=== PATIENT | female | born 1960 | race Caucasian/White ===

== ENCOUNTER 2018-03-07 11:18 | Emergency (ER) | payer OTHER ==
--- NOTE | 2018-03-07 11:38 | ER Document Report ---
ED Medical Screen (RME) - General Chief Complaint: Numbness of Face Stated Complaint: FACIAL NUMBNESS Time Seen by Provider: 03/07/18 11:34 Mode of Arrival: Ambulatory Information source: Patient Notes: 57-year-old female history of hypertension presents with complaints of left facial numbness, she feels that her face is swelled, she noted some itching yesterday took some Benadryl notes the itching improved but the numbness is continued. She has no other neurological deficits or complaints I have greeted and performed a rapid initial assessment of this patient. A comprehensive ED assessment and evaluation of the patient, analysis of test results and completion of the medical decision making process will be conducted by additional ED providers. PHYSICAL EXAMINATION: GENERAL: Well-appearing, well-nourished and in no acute distress. HEAD: Atraumatic, normocephalic. EYES: Pupils equal round extraocular movements intact, conjunctiva are normal. ENT: Nares patent NECK: Normal range of motion LUNGS: No respiratory distress Musculoskeletal: Normal range of motion NEUROLOGICAL: Subjective paresthesias of the left face PSYCH: Normal mood, normal affect. SKIN: Warm, Dry, normal turgor, no rashes or lesions noted. - Related Data Allergies/Adverse Reactions: erythromycin base [Erythromycin Base] Allergy (Severe, Verified 12/10/11 10:06) n and v Penicillins Allergy (Severe, Verified 12/10/11 10:06) face tightness novacaine Allergy (Severe, Uncoded 12/10/11 10:06) redness Past Medical History - Social History Chew tobacco use (# tins/day): No Frequency of alcohol use: None Drug Abuse: None - Past Medical History Cardiac Medical History: Denies: Hx Coronary Artery Disease, Hx Heart Attack, Hx Hypertension Pulmonary Medical History: Denies: Hx Asthma, Hx Bronchitis, Hx COPD, Hx Pneumonia Neurological Medical History: Denies: Hx Cerebrovascular Accident, Hx Seizures Renal/ Medical History: Denies: Hx Peritoneal Dialysis Musculoskeltal Medical History: Denies Hx Arthritis Past Surgical History: Denies: Hx Pacemaker - Immunizations Hx Diphtheria, Pertussis, Tetanus Vaccination: No Physical Exam - Vital signs Vitals: Temp Pulse Resp BP Pulse Ox 98.2 F 79 18 138/84 H 93 03/07/18 11:22 03/07/18 11:22 03/07/18 11:22 03/07/18 11:22 03/07/18 11:22 Course - Vital Signs Vital signs: Temp Pulse Resp BP Pulse Ox 98.2 F 79 18 138/84 H 93 03/07/18 11:22 03/07/18 11:22 03/07/18 11:22 03/07/18 11:22 03/07/18 11:22 Doctor's Discharge - Discharge Referrals: JERRY THOMAS MD [Primary Care Provider] - Follow up as needed
--- NOTE | 2018-03-07 11:56 | RADIOLOGY REPORT (SQ) ---
EXAM DESCRIPTION: CT HEAD WITHOUT COMPLETED DATE/TIME: 03/07/2018 11:49 am REASON FOR STUDY: left facial numbness COMPARISON: None. TECHNIQUE: Axial images acquired through the brain without intravenous contrast. Images reviewed wi th bone, brain and subdural windows. Images stored on PACS. All CT scanners at this facility use dose modulation, iterative reconstruction, and/or weight based d osing when appropriate to reduce radiation dose to as low as reasonably achievable (ALARA). [facility]: Dose Right [facility]: CareDose [facility]: Dose Right [facility]: Teradose 4D [facility]: Smart scrible RADIATION DOSE: CT Rad equipment meets quality standard of care and radiation dose reduction techniq ues were employed. CTDIvol: 53.2 mGy. DLP: 1017 mGy-cm. mGy. LIMITATIONS: None. FINDINGS: VENTRICLES: Normal size and contour. CEREBRUM: No masses. No hemorrhage. No midline shift. No evidence for acute infarction. Normal gra y/white matter differentiation. No areas of low density in the white matter. CEREBELLUM: No masses. No hemorrhage. No alteration of density. No evidence for acute infarction. EXTRAAXIAL SPACES: No fluid collections. No masses. ORBITS AND GLOBE: No intra- or extraconal masses. Normal contour of globe without masses. CALVARIUM: No fracture. PARANASAL SINUSES: No fluid or mucosal thickening. SOFT TISSUES: No mass or hematoma. OTHER: No other significant finding. IMPRESSION: NORMAL BRAIN CT WITHOUT CONTRAST. EVIDENCE OF ACUTE STROKE: NO. COMMENT: Quality ID # [id number]: Final reports with documentation of one or more dose reduction techniques (e.g., Automated exposure control, adjustment of the mA and/or kV according to patient size, use of iterative reconstruction technique) TECHNICAL DOCUMENTATION: JOB ID: [id number] [employer] All Rights Reserved Reading location - IP/workstation name: [email or web address]
--- NOTE | 2018-03-07 12:00 | ER Document Report ---
ED Neuro Symptoms/Deficit <DEBBIE CONNELL - Last Filed: 03/07/18 14:46> - General Mode of Arrival: Ambulatory Information source: Patient <EMILIE POTTER - Last Filed: 03/07/18 15:15> - General Chief Complaint: Numbness of Face Stated Complaint: FACIAL NUMBNESS Time Seen by Provider: 03/07/18 11:34 Notes: Patient is a 57 year old female that presents to the emergency department today with complaints of left sided facial tingling. Patient states both sides of her face have been "itchy" lately as well. Patient states this "itching" feeling has been going on in both arms and her face for quite some time but the numbness is new. Patient denies any focal weaknesses. (ABBEYEMILIE) - Related Data Allergies/Adverse Reactions: erythromycin base [Erythromycin Base] Allergy (Severe, Verified 12/10/11 10:06) n and v Penicillins Allergy (Severe, Verified 12/10/11 10:06) face tightness novacaine Allergy (Severe, Uncoded 12/10/11 10:06) redness Past Medical History - General Information source: Patient - Social History Smoking Status: Never Smoker Cigarette use (# per day): No Chew tobacco use (# tins/day): No Frequency of alcohol use: None Drug Abuse: None Lives with: Family Family History: Reviewed & Not Pertinent Patient has suicidal ideation: No Patient has homicidal ideation: No - Medical History Medical History: Negative Past Surgical History: Reports: Hx Cholecystectomy, Hx Hysterectomy, Other - lymph node removal - Immunizations Hx Diphtheria, Pertussis, Tetanus Vaccination: No <EMILIE POTTER - Last Filed: 03/07/18 15:15> Review of Systems - Review of Systems Constitutional: No symptoms reported EENT: See HPI, Other - facial tingling/itching Cardiovascular: No symptoms reported Respiratory: No symptoms reported Gastrointestinal: No symptoms reported Genitourinary: No symptoms reported Female Genitourinary: No symptoms reported Musculoskeletal: No symptoms reported Skin: No symptoms reported Hematologic/Lymphatic: No symptoms reported Neurological/Psychological: denies: Weakness -: Yes All other systems reviewed and negative <EMILIE POTTER - Last Filed: 03/07/18 15:15> Physical Exam - Vital signs Interpretation: Normal - General General appearance: Appears well, Alert - HEENT Head: Normocephalic, Atraumatic Eyes: Normal Pupils: PERRL Ears: Normal External canal: Normal Tympanic membrane: Normal Neck: No: Carotid bruit - Respiratory Respiratory status: No respiratory distress Chest status: Nontender Breath sounds: Normal Chest palpation: Normal - Cardiovascular Rhythm: Regular Heart sounds: Normal auscultation Murmur: No - Abdominal Inspection: Normal Distension: No distension Bowel sounds: Normal Tenderness: Nontender Organomegaly: No organomegaly - Back Back: Normal, Nontender - Extremities General upper extremity: Normal inspection, Nontender, Normal color, Normal ROM , Normal temperature General lower extremity: Normal inspection, Nontender, Normal color, Normal ROM , Normal temperature, Normal weight bearing. No: Jennifer's sign - Neurological Neuro grossly intact: Yes Cognition: Normal Orientation: AAOx4 Yosvany Coma Scale Eye Opening: Spontaneous [place] Coma Scale Verbal: Oriented Yosvany Coma Scale Motor: Obeys Commands Yosvany Coma Scale Total: 15 Speech: Normal Cranial nerves: Normal Cerebellar coordination: Normal Motor strength normal: LUE, RUE, LLE, RLE Sensory: Normal - Psychological Associated symptoms: Normal affect, Normal mood - Skin Skin Temperature: Warm Skin Moisture: Dry Skin Color: Normal <EMILIE POTTER - Last Filed: 03/07/18 15:15> - Vital signs Vitals: Temp Pulse Resp BP Pulse Ox 98.2 F 79 18 138/84 H 93 03/07/18 11:22 03/07/18 11:22 03/07/18 11:22 03/07/18 11:22 03/07/18 11:22 Course - Laboratory Result Diagrams: 03/07/18 12:37 03/07/18 12:37 - Diagnostic Test Radiology reviewed: Image reviewed, Reports reviewed - CT of the head is read as unremarkable, chest x-ray is unremarkable. MRI of the brain is unremarkable with no evidence of stroke. - EKG Interpretation by [place] EKG shows normal: Sinus rhythm, [place], Intervals, QRS Complexes, ST-T Waves Rate: Normal - 67 Rhythm: NSR [place]/QRS: IVCD Voltage: Consistant with LVH When compared to previous EKG there are: No significant change - No change compared to 12/10/2011 <DEBBIE CONNELL - Last Filed: 03/07/18 14:46> - Laboratory Result Diagrams: 03/07/18 12:37 03/07/18 12:37 <EMILIE POTTER - Last Filed: 03/07/18 15:15> - Vital Signs Vital signs: Temp Pulse Resp BP Pulse Ox 98.2 F 77 18 138/79 H 92 03/07/18 11:22 03/07/18 12:38 03/07/18 13:00 03/07/18 12:38 03/07/18 13:00 - Laboratory Laboratory results interpreted by me: 03/07/18 12:37 Chloride 108 H Creatinine 0.51 L Discharge <KODEBBIE - Last Filed: 03/07/18 14:46> <EMILIE POTTER - Last Filed: 03/07/18 15:15> - Discharge Clinical Impression: Left facial numbness Additional Instructions: Numbness or Paresthesia: Definition: Numbness and tingling are decreased or abnormal sensations caused by altered sensory nerve function. Description: The feeling of having a foot "fall asleep" is a familiar one. This same combination of numbness and tingling can occur in any region of the body and may be caused by a wide variety of disorders. Sensations such as these , which occur without any associated stimulus, are called paresthesias. Other types of paresthesias include feelings of cold, warmth, burning, itching, and skin crawl. Often no explanation for the numbness and tingling can be found. Your CT scan of the brain and MRI of the brain were both normal. No clear explanation for your numbness sensation has been found today. You should follow-up with your primary care provider this week if not improving. RETURN TO THE EMERGENCY ROOM IF ANY NEW OR WORSENING SYMPTOMS. Referrals: JERRY THOMAS MD [ACTIVE STAFF] - Follow up as needed Scribe Attestation: 03/07/18 12:13 I personally performed the services described in the documentation, reviewed and edited the documentation which was dictated to the scribe in my presence, and it accurately records my words and actions. (DEBBIE CONNELL) Scribe Documentation - Scribe Written by Toro:: Toro Cantrell, 03/07/2018 1510 acting as scribe for :: Ko <EMILIE POTTER - Last Filed: 03/07/18 15:15>
--- NOTE | 2018-03-07 12:02 | RADIOLOGY REPORT (SQ) ---
EXAM DESCRIPTION: CHEST SINGLE VIEW COMPLETED DATE/TIME: 03/07/2018 11:55 am REASON FOR STUDY: left facial numbness COMPARISON: 03/18/2010 EXAM PARAMETERS: NUMBER OF VIEWS: One view. TECHNIQUE: Single frontal radiographic view of the chest acquired. RADIATION DOSE: NA LIMITATIONS: None. FINDINGS: LUNGS AND PLEURA: No opacities, masses or pneumothorax. No pleural effusion. MEDIASTINUM AND HILAR STRUCTURES: No masses. Contour normal. HEART AND VASCULAR STRUCTURES: Heart normal in size. Normal vasculature. BONES: No acute findings. HARDWARE: None in the chest. OTHER: No other significant finding. IMPRESSION: NO ACUTE RADIOGRAPHIC FINDING IN THE CHEST. TECHNICAL DOCUMENTATION: JOB ID: [id number] [employer]- All Rights Reserved Reading location - IP/workstation name: [email or web address]
[2018-03-07 12:46] LABS: ABSOLUTE BASOPHILS # (AUTO) 0.1 10^3/uL (0.0-0.2); ABSOLUTE EOSINOPHILS # (AUTO) 0.2 10^3/uL (0.0-0.6); ABSOLUTE LYMPHOCYTES (AUTO) 1.9 10^3/uL (0.5-4.7); ABSOLUTE MONOCYTES (AUTO) 0.4 10^3/uL (0.1-1.4); BASOPHILS % (AUTO) 0.8 % (0-2); HEMATOCRIT 40.4 % (36.0-47.0); HEMOGLOBIN 13.7 g/dL (12.0-15.5); LYMPHOCYTES % (AUTO) 25.1 % (13-45); MEAN CORPUSCULAR HEMOGLOBIN 29.3 pg (27.0-33.4); MEAN CORPUSCULAR HGB CONC 33.8 g/dL (32.0-36.0); MEAN CORPUSCULAR VOLUME 87 fl (80-97); MONOCYTES % (AUTO) 5.6 % (3-13); PLATELET COUNT 260 10^3/uL (150-450); RED BLOOD COUNT 4.67 10^6/uL (3.72-5.28); RED CELL DISTRIBUTION WIDTH 13.5 % (11.5-14.0); SEGMENTED NEUTROPHILS % (AUTO) 66.5 % (42-78); TOTAL CELLS COUNTED % (AUTO) 100 %; WHITE BLOOD COUNT 7.5 10^3/uL (4.0-10.5)
[2018-03-07 12:53] LABS: INTERNATIONAL RATION (INR) 0.88; PARTIAL THROMBOPLASTIN TIME 26.4 SEC (23.5-35.8); PROTHROMBIN TIME 12.4 SEC (11.4-15.4)
[2018-03-07 13:06] LABS: ALANINE AMINOTRANSFERASE 47 U/L (9-52); ALBUMIN 4.2 g/dL (3.5-5.0); ALKALINE PHOSPHATASE 110 U/L (38-126); ANION GAP 14 (5-19); ASPARTATE AMINO TRANSFERASE 31 U/L (14-36); BILIRUBIN,DIRECT 0.2 mg/dL (0.0-0.4); BILIRUBIN,TOTAL 1.1 mg/dL (0.2-1.3); BLOOD UREA NITROGEN 14 mg/dL (7-20); CALCIUM 9.9 mg/dL (8.4-10.2); CARBON DIOXIDE 22 mmol/L (22-30); CHLORIDE 108 mmol/L (98-107); CREATINE KINASE 50 U/L (30-135); GLUCOSE 101 mg/dL (75-110); SODIUM 143.7 mmol/L (137-145); TOTAL PROTEIN 7.2 g/dL (6.3-8.2)
[2018-03-07 13:17] LABS: CREATINE KINASE MB 0.54 ng/mL (<4.55)
[2018-03-07 13:26] LABS: TROPONIN I < 0.012 ng/mL
--- NOTE | 2018-03-07 14:03 | RADIOLOGY REPORT (SQ) ---
EXAM DESCRIPTION: MRI HEAD WITHOUT COMPLETED DATE/TIME: 03/07/2018 1:54 pm REASON FOR STUDY: Left face numbness COMPARISON: None. TECHNIQUE: Multiplanar imaging includes non-contrasted T1, T2, FLAIR, and diffusion with ADC map seq uences. Images stored on PACS. LIMITATIONS: None. FINDINGS: ANATOMY: No anomalies. Normal vascular flow voids. Pituitary fossa normal. CSF SPACES: Normal in size and contour. No hemorrhage. CEREBRUM: Sulci and gyri normal in size and contour. Normal white matter signal on FLAIR imaging. No evidence of hemorrhage, mass, or extraaxial fluid collection. POSTERIOR FOSSA: No signal alteration. No hemorrhage. No edema, masses or mass effect. Internal eagle tory canals, cerebello-pontine angles, mastoids normal. DIFFUSION IMAGING: Negative for acute or sub-acute infarction. ORBITS: No masses. Globes normal. PARANASAL SINUSES: No fluid levels. Mucosa normal. OTHER: No other significant finding. IMPRESSION: NORMAL MRI OF THE BRAIN WITHOUT INTRAVENOUS GADOLINIUM CONTRAST. EVIDENCE OF ACUTE STROKE: NO. TECHNICAL DOCUMENTATION: JOB ID: [id number]- All Rights Reserved Reading location - IP/workstation name: [email or web address]
[2018-03-07 15:19] VITALS: BP 127/80
--- NOTE | 2018-03-07 23:18 | EKG REPORT ---
SEVERITY:- ABNORMAL ECG - SINUS RHYTHM NONSPECIFIC INTRAVENTRICULAR CONDUCTION DELAY PROBABLE LEFT VENTRICULAR HYPERTROPHY CONSIDER ANTERIOR INFARCT : Confirmed by: Rowena Meneses 07-Mar-2018 23:18:04
== END 2018-03-07 15:25 | disposition home or self-care (01) ==
LOC: ER 11:18
DX: R20.0 Anesthesia of skin (principal); Z88.3 Allergy status to other anti-infective agents; Z88.0 Allergy status to penicillin; Z90.49 Acquired absence of other specified parts of digestive tract; Z90.710 Acquired absence of both cervix and uterus
CPT/HCPCS: 36415; 70450; 70551; 71045; 80053; 82550; 82553; 84484; 85025; 85610; 85730; 93005; 93010; 99285

== ENCOUNTER 2020-09-14 13:11 | Inpatient (IN) | payer OTHER ==
[2020-09-14] MEDS ORDERED: ONDANSETRON HCL INJ/PF 4 MG/2 ML SDV IV ONE (13:26)
[2020-09-14] MEDS ORDERED: NORMAL SALINE 1000 ML 1,000 ML IV ONE (13:26)
--- NOTE | 2020-09-14 13:26 | ER Document Report ---
ED Medical Screen (RME) - General Stated Complaint: VOMITING/DIARRHEA Time Seen by Provider: 09/14/20 13:22 Primary Care Provider: JERRY THOMAS MD [Primary Care Provider] - Follow up as needed Mode of Arrival: Ambulatory Information source: Patient Notes: Patient presents complaining of nausea vomiting diarrhea for the past 6 days. Patient reports mild cough. Patient reports that she was recently notified that she did test positive for Covid. Patient denies any abdominal tenderness. Patient is concerned about dehydration. Patient does have an underlying history of hypertension. I have greeted and performed a rapid initial assessment of this patient. A comprehensive ED assessment and evaluation of the patient, analysis of test results and completion of the medical decision making process will be conducted by additional ED providers. - Related Data Allergies/Adverse Reactions: erythromycin base [Erythromycin Base] Allergy (Severe, Verified 12/10/11 10:06) n and v Penicillins Allergy (Severe, Verified 12/10/11 10:06) face tightness novacaine Allergy (Severe, Uncoded 12/10/11 10:06) redness Past Medical History - Past Medical History Cardiac Medical History: Denies: Hx Coronary Artery Disease, Hx Heart Attack, Hx Hypertension Pulmonary Medical History: Denies: Hx Asthma, Hx Bronchitis, Hx COPD, Hx Pneumonia Neurological Medical History: Denies: Hx Cerebrovascular Accident, Hx Seizures Renal/ Medical History: Denies: Hx Peritoneal Dialysis Musculoskeltal Medical History: Denies Hx Arthritis Past Surgical History: Reports: Hx Cholecystectomy, Hx Hysterectomy, Other - lymph node removal. Denies: Hx Pacemaker - Immunizations Hx Diphtheria, Pertussis, Tetanus Vaccination: No Physical Exam - Vital signs Vitals: Temp Pulse Resp BP Pulse Ox 98.4 F 101 H 22 H 130/67 H 92 09/14/20 13:22 09/14/20 13:22 09/14/20 13:22 09/14/20 13:22 09/14/20 13:22 - General General appearance: Alert - Cardiovascular Rhythm: Tachycardia Heart sounds: S1 appreciated, S2 appreciated - Abdominal Inspection: Normal Distension: No distension Tenderness: Nontender Course - Vital Signs Vital signs: Temp Pulse Resp BP Pulse Ox 98.4 F 101 H 22 H 130/67 H 92 09/14/20 13:22 09/14/20 13:22 09/14/20 13:22 09/14/20 13:22 09/14/20 13:22 Doctor's Discharge - Discharge Referrals: JERRY THOMAS MD [Primary Care Provider] - Follow up as needed
--- NOTE | 2020-09-14 15:09 | RADIOLOGY REPORT (SQ) ---
EXAM DESCRIPTION: CHEST SINGLE VIEW IMAGES COMPLETED DATE/TIME: 09/14/2020 2:59 pm REASON FOR STUDY: cough COMPARISON: AP view of the chest from 03/07/2018. EXAM PARAMETERS: NUMBER OF VIEWS: One view. TECHNIQUE: An AP view of the chest was obtained. RADIATION DOSE: NA LIMITATIONS: None. FINDINGS: LUNGS AND PLEURA: Strands of subsegmental atelectasis in the inferolateral aspect of the l eft lung. There is no acute consolidation, pleural effusion or pneumothorax. MEDIASTINUM AND HILAR STRUCTURES: No mediastinal or hilar contour abnormality. HEART AND VASCULAR STRUCTURES: The cardiac silhouette and pulmonary vasculature are within normal medrano its. BONES: No acute findings. HARDWARE: None in the chest. OTHER: No other finding. IMPRESSION: No acute cardiopulmonary process. TECHNICAL DOCUMENTATION: JOB ID: [id number] [employer]- All Rights Reserved Reading location - IP/workstation name: [email or web address]
[2020-09-14] MEDS ORDERED: ONDANSETRON HCL INJ/PF 4 MG/2 ML SDV ONE ×2 (15:34→15:36)
[2020-09-14 16:03] LABS: ABSOLUTE LYMPHOCYTES (AUTO) 0.9 10^3/uL (0.5-4.7); ABSOLUTE MONOCYTES (AUTO) 0.7 10^3/uL (0.1-1.4); ABSOLUTE NEUT (AUTO) 5.7 10^3/uL (1.7-8.2); BASOPHILS % (AUTO) 0.3 % (0-2); EOSINOPHILS % (AUTO) 0.1 % (0-6); HEMATOCRIT 44.9 % (36.0-47.0); LYMPHOCYTES % (AUTO) 12.5 % (13-45); MEAN CORPUSCULAR HEMOGLOBIN 29.2 pg (27.0-33.4); MEAN CORPUSCULAR HGB CONC 33.4 g/dL (32.0-36.0); MEAN CORPUSCULAR VOLUME 87 fl (80-97); MONOCYTES % (AUTO) 9.4 % (3-13); PLATELET COUNT 233 10^3/uL (150-450); RED BLOOD COUNT 5.14 10^6/uL (3.72-5.28); RED CELL DISTRIBUTION WIDTH 13.5 % (11.5-14.0); SEGMENTED NEUTROPHILS % (AUTO) 77.7 % (42-78); TOTAL CELLS COUNTED % (AUTO) 100 %; WHITE BLOOD COUNT 7.3 10^3/uL (4.0-10.5)
[2020-09-14 16:13] LABS: ALBUMIN 4.3 g/dL (3.5-5.0); ALKALINE PHOSPHATASE 142 U/L (38-126); ANION GAP 13 (5-19); ASPARTATE AMINO TRANSFERASE 81 U/L (14-36); BILIRUBIN,DIRECT 0.2 mg/dL (0.0-0.4); BILIRUBIN,TOTAL 1.6 mg/dL (0.2-1.3); BLOOD UREA NITROGEN 22 mg/dL (7-20); CALCIUM 9.6 mg/dL (8.4-10.2); CARBON DIOXIDE 26 mmol/L (22-30); CHLORIDE 103 mmol/L (98-107); GLUCOSE 124 mg/dL (75-110); POTASSIUM 3.5 mmol/L (3.6-5.0); TOTAL PROTEIN 7.6 g/dL (6.3-8.2)
[2020-09-14] MEDS ORDERED: PROMETHAZINE HCL INJ 50 MG/1 ML VIAL IM ONE (20:10)
--- NOTE | 2020-09-14 20:15 | ER Document Report ---
ED General - General Chief Complaint: Nausea/Vomiting/Diarrhea Stated Complaint: VOMITING/DIARRHEA Time Seen by Provider: 09/14/20 13:22 Mode of Arrival: Ambulatory - [facility] Notes: Patient is a 59-year-old female with a past medical history of high blood pressure who presents with vomiting and shortness of breath. Patient states she tested positive for Covid last week. She developed symptoms around the 08 of September. She had vomiting and diarrhea. The diarrhea has mostly resolved. Today, she has had a lot of vomiting. She is unable to keep food down. She denies any abdominal pain. No loss of taste or smell. States she has had fevers with T-max of 101. Denies any chest pain. Patient was noted to be 90% on room air and was placed on 2 L nasal cannula while in the ER. - Related Data Allergies/Adverse Reactions: erythromycin base [Erythromycin Base] Allergy (Severe, Verified 09/14/20 15:44) n and v Penicillins Allergy (Severe, Verified 09/14/20 15:44) face tightness novacaine Allergy (Severe, Uncoded 12/10/11 10:06) redness Past Medical History - General Information source: Patient - Social History Smoking Status: Former Smoker Frequency of alcohol use: None Drug Abuse: None Family History: Reviewed & Not Pertinent Patient has homicidal ideation: No - Past Medical History Cardiac Medical History: Denies: Hx Coronary Artery Disease, Hx Heart Attack, Hx Hypertension Pulmonary Medical History: Denies: Hx Asthma, Hx Bronchitis, Hx COPD, Hx Pneumonia Neurological Medical History: Denies: Hx Cerebrovascular Accident, Hx Seizures Renal/ Medical History: Denies: Hx Peritoneal Dialysis Musculoskeletal Medical History: Denies Hx Arthritis Past Surgical History: Reports: Hx Cholecystectomy, Hx Hysterectomy, Other - lymph node removal. Denies: Hx Pacemaker - Immunizations Hx Diphtheria, Pertussis, Tetanus Vaccination: No Review of Systems - Review of Systems Notes: CONSTITUTIONAL:Positive for fever and fatigue. SKIN: No rash. HENT: No congestion, ear pain, or sore throat. . CARDIOVASCULAR: No chest pain or edema. RESPIRATORY: No cough, shortness of breath, congestion, or wheezing. GASTROINTESTINAL: No abdominal pain. Positive for nausea, vomiting, diarrhea. MUSCULOSKELETAL: No joint pain or swelling. NEUROLOGIC: No seizures. No headache, focal weakness or sensory changes. HEMATOLOGIC: No unusual bruising or bleeding. PSYCHIATRIC: No depression or anxiety. Physical Exam - Vital signs Vitals: Temp Pulse Resp BP Pulse Ox 98.4 F 101 H 22 H 130/67 H 92 09/14/20 13:22 09/14/20 13:22 09/14/20 13:22 09/14/20 13:22 09/14/20 13:22 - General In distress: Mild Notes: VITAL SIGNS: Mild hypoxia on room air. GENERAL: Mild distress. HEAD: Normal with no signs of head trauma. EYES: Conjunctiva normal, no discharge. EARS: Hearing grossly intact. NOSE: Normal. NECK: Normal range of motion, no tenderness, supple, no lymphadenopathy, No adenopathy, no JVD. CHEST: Clear breath sounds bilaterally. No wheezes, rales, or rhonchi. CARDIAC: Regular rate and rhythm. S1 and S2, without murmurs, gallops, or rubs. ABDOMEN: Normal and soft with no tenderness, no masses MUSCULOSKELETAL: Good range of motion of all major joints. Extremities without clubbing, cyanosis or edema. NEUROLOGICAL: Alert and oriented x 3. No focal sensory or strength deficits. Speech normal. Follows commands appropriately. PSYCHIATRIC: Normal Affect, judgement and mood. SKIN: Normal appearance with no rashes or lesions. Course - Re-evaluation Re-evalutation: 09/14/20 20:15 Patient aappears very uncomfortable. She is actively vomiting. She has had multiple doses of nausea medicine. She states she is unable to keep anything down. Patient was also noted to be hypoxic on room air. Lab work was reviewed. Likely, patient will be admitted as she is covid positive, has mild hypoxia, and is unable to keep PO. I will discuss with the hospitalist. Hospitalist recommend that I order a D-dimer. 09/15/20 02:04 - Vital Signs Vital signs: Temp Pulse Resp BP Pulse Ox 98.7 F 83 19 138/76 H 95 09/15/20 00:52 09/15/20 01:58 09/15/20 00:52 09/15/20 00:52 09/15/20 00:52 - Laboratory Results Result Diagrams: 09/14/20 15:30 09/14/20 15:30 Laboratory Results Interpreted: 09/14/20 09/14/20 09/14/20 15:30 15:30 15:30 Lymph % (Auto) 12.5 L D-Dimer 0.57 H Potassium 3.5 L BUN 22 H Glucose 124 H Total Bilirubin 1.6 H AST 81 H ALT 60 H Alkaline Phosphatase 142 H Critical Laboratory Results Reviewed: No Critical Results - Radiology Results Critical Radiology Results Reviewed: No Critical Results - EKG Interpretation by Me EKG shows normal: Sinus rhythm Rate: Normal Rhythm: NSR When compared to previous EKG there are: Previous EKG unavailable Additional EKG results interpreted by me: 09/14/20 22:51 NS rhythm at a rate of 67. QTc 456. No acute ST changes. No previous EKG available for comparison. Discharge - Discharge Clinical Impression: COVID-19, Acute respiratory failure with hypoxia, Dehydration Vomiting Qualifiers: Vomiting type: unspecified Vomiting Intractability: non-intractable Nausea presence: with nausea Qualified Code(s): R11.2 - Nausea with vomiting, unspecified Condition: Stable Disposition: ADMITTED INPATIENT Admitting Provider: [facility] Admitted: Telemetry
[2020-09-14] MEDS ORDERED: PROMETHAZINE HCL INJ 25 MG/1 ML VIAL IM ONE (20:26)
[2020-09-14] MEDS ORDERED: ONDANSETRON HCL INJ/PF 4 MG/2 ML SDV IV PRN (22:45)
--- NOTE | 2020-09-14 23:08 | PDOC H&P ---
History of Present Illness Admission Date/PCP: JERRY THOMAS MD Patient complains of: Weak, vomiting and diarrhea History of Present Illness: GERMANIA DURHAM is a 59 year old female She is not feeling well for about 7 to 10 days now. She tested positive for coronavirus on September 11. She was coughing, she had shaking chills and fever. She had no shortness of breath. She developed diarrhea with watery bowel movements. She became nauseated, lost her appetite and vomited several times. She had no coffee-ground material or blood in her emesis. She continued to have some fever. She became weak and eventually decided come to the hospital. After receiving intravenous fluids she was started feeling better. She did not have any shortness of breath but her oxygen saturation was about 90% on room air, she was placed on oxygen. She maintains good oxygen saturation with 2 L/min nasal oxygen in the high 90s. When I saw her she appeared to be weak but she was not in any pain or respiratory distress. Past Medical History Cardiac Medical History: Reports: Hypertension Denies: Coronary Artery Disease, Myocardial Infarction Pulmonary Medical History: Denies: Asthma, Bronchitis, Chronic Obstructive Pulmonary Disease (COPD), Pneumonia Neurological Medical History: Denies: Seizures Endocrine Medical History: Denies: Diabetes Mellitus Type 1, Diabetes Mellitus Type 2 GI Medical History: Reports: None Musculoskeltal Medical History: Denies: Arthritis Psychiatric Medical History: Reports: None Hematology: Reports: None Denies: Anemia Infectious Medical History: Reports: None Past Surgical History Past Surgical History: Reports: Cholecystectomy, Hysterectomy, Other - lymph node removal Denies: Pacemaker Social History Lives with: Family Smoking Status: Former Smoker Family History Family History: CAD, Other - Lung cancer Parental Family History Reviewed: Yes Children Family History Reviewed: Yes Sibling(s) Family History Reviewed.: Yes Medication/Allergy Home Medications: Premarin PO DAILY 12/10/11 Allergies/Adverse Reactions: erythromycin base [Erythromycin Base] Allergy (Severe, Verified 09/14/20 15:44) n and v Penicillins Allergy (Severe, Verified 09/14/20 15:44) face tightness novacaine Allergy (Severe, Uncoded 12/10/11 10:06) redness Review of Systems Constitutional: PRESENT: anorexia, chills, fever(s), weakness Cardiovascular: ABSENT: chest pain, dyspnea on exertion, edema, orthropnea, palpitations Respiratory: PRESENT: cough - Had some minimal dry cough earlier, she is not coughing anymore.. ABSENT: dyspnea, hemoptysis, sputum Gastrointestinal: PRESENT: diarrhea, nausea, vomiting. ABSENT: abdominal pain, coffee ground emesis, heartburn, melena Genitourinary: ABSENT: dysuria, hematuria Musculoskeletal: ABSENT: joint swelling Integumentary: ABSENT: rash, wounds Neurological: ABSENT: abnormal gait, abnormal speech, confusion, dizziness, focal weakness, syncope Hematologic/Lymphatic: ABSENT: easy bleeding, easy bruising Physical Exam Vital Signs: Temp Pulse Resp BP Pulse Ox 98.2 F 85 20 135/62 H 97 09/14/20 21:00 09/14/20 21:00 09/14/20 17:00 09/14/20 21:00 09/14/20 21:00 Intake & Output 09/13/20 09/14/20 09/15/20 06:59 06:59 06:59 Intake Total 1000 Balance 1000 Weight 90.718 kg General appearance: PRESENT: no acute distress Head exam: PRESENT: atraumatic Eye exam: PRESENT: conjunctival injection Ear exam: PRESENT: normal external ear exam Mouth exam: PRESENT: moist, tongue midline Neck exam: ABSENT: carotid bruit, JVD, lymphadenopathy, thyromegaly Respiratory exam: PRESENT: clear to auscultation keara. ABSENT: rales, rhonchi, wheezes Cardiovascular exam: PRESENT: RRR. ABSENT: diastolic murmur, rubs, systolic murmur Pulses: PRESENT: normal dorsalis pedis pul GI/Abdominal exam: PRESENT: normal bowel sounds, soft. ABSENT: distended, guarding, mass, organolmegaly, rebound, tenderness Neurological exam: PRESENT: alert, awake, oriented to person, oriented to place, oriented to time, oriented to situation, CN II-XII grossly intact. ABSENT: motor sensory deficit Skin exam: PRESENT: dry, intact, warm. ABSENT: cyanosis, rash Results Laboratory Results: 09/14/20 15:30 09/14/20 15:30 09/14/20 09/14/20 15:30 15:30 WBC 7.3 RBC 5.14 Hgb 15.0 Hct 44.9 MCV 87 MCH 29.2 MCHC 33.4 RDW 13.5 Plt Count 233 Seg Neutrophils % 77.7 Sodium 142.1 Potassium 3.5 L Chloride 103 Carbon Dioxide 26 Anion Gap 13 BUN 22 H Creatinine 0.65 Est GFR ( Amer) > 60 Glucose 124 H Calcium 9.6 Total Bilirubin 1.6 H AST 81 H Alkaline Phosphatase 142 H Total Protein 7.6 Albumin 4.3 Lipase 33.7 09/14/20 15:30 Troponin I < 0.012 Impressions: Chest X-Ray 09/14/20 13:26 IMPRESSION: No acute cardiopulmonary process. Assessment and Plan - Diagnosis (1) Acute respiratory failure with hypoxia Is this a current diagnosis for this admission?: Yes Plan: She had no shortness of breath but her oxygen saturation was only 90% on room air. She maintains good oxygen saturation with 2 L/min nasal oxygen. Chest x- ray did not show any acute infiltrate. Lung examination unremarkable. D-dimer slightly elevated. Patient is going to have a CT pulmonary angiogram. In case she has pulmonary embolus, she will be anticoagulated. In case she does not have pulmonary embolus she may receive dexamethasone if she has infiltrates. Continue oxygen therapy. (2) COVID-19 Is this a current diagnosis for this admission?: Yes Plan: She was tested positive for coronavirus infection earlier this week. She was hypoxic but she really did not have any significant respiratory symptoms and she definitely did not have any shortness of breath. She had significant gastrointestinal symptoms with nausea vomiting and diarrhea. No abdominal pain. He is going to be on appropriate isolation. She is sick for about 10 days now, I believe convalescent plasma probably not going to be much helpful. (3) Vomiting Qualifiers: Vomiting type: unspecified Vomiting Intractability: non-intractable Nausea presence: with nausea Qualified Code(s): R11.2 - Nausea with vomiting, unspecified Is this a current diagnosis for this admission?: Yes Plan: She is feeling better and not nauseated now. Antiemetics as needed. Start full liquid diet in the morning, advance as tolerated. (4) Diarrhea Qualifiers: Diarrhea type: infectious Qualified Code(s): A09 - Infectious gastroenteritis and colitis, unspecified Is this a current diagnosis for this admission?: Yes Plan: Secondary to coronavirus infection. It is improving. Bacterial infection seems to be unlikely. (5) Dehydration Is this a current diagnosis for this admission?: Yes Plan: She received fluid bolus in the emergency department, it made her feel better. Continue gentle hydration but avoid any volume overload. If she is eating, drinking well, tomorrow intravenous fluid can be discontinued. (7) Hypertension Qualifiers: Hypertension type: essential hypertension Qualified Code(s): I10 - Essential (primary) hypertension Is this a current diagnosis for this admission?: Yes Plan: She is taking unknown milligrams amlodipine daily. Resume amlodipine as needed. - Plan Summary Summary: Patient was admitted to telemetry unit with isolation protocol. She has coronavirus infection with asymptomatic hypoxemia and gastrointestinal symptoms. Her oxygen saturation was only 90% on room air, she has no previous history of any chronic lung disease or any illness causing chronic hypoxemia. She was placed on oxygen, she maintains good oxygen saturation. Her chest x-ray is fairly unremarkable. D-dimer was slightly elevated. She is going to have a CT pulmonary angiogram because of the possibility of pulmonary emboli. If she has pulmonary emboli she will be anticoagulated. If she has significant infiltrates on chest x-ray she is going to receive dexamethasone. She is going to receive supportive care, intravenous fluids but we are going to avoid volume overload. - Time Time Spent with patient: 35 or more minutes Medications reviewed and adjusted accordingly: Yes Anticipated Discharge Disposition: Home, Self Care Anticipated Discharge Timeframe: within 72 hours - Inpatient Certification Based on my medical assessment, after consideration of the patient's comorbidities, presenting symptoms, or acuity I expect that the services needed warrant INPATIENT care.: Yes I certify that my determination is in accordance with my understanding of Medicare's requirements for reasonable and necessary INPATIENT services [42 CFR 412.3e].: Yes Medical Necessity: Need For IV Fluids, Need For Continuous Telemetry Monitoring, Risk of Complication if Not Cared For in Hospital
[2020-09-15 00:22] LABS: APPEARANCE,URINE SLIGHTLY-CLOUDY; BILIRUBIN,URINE NEGATIVE (NEGATIVE); COLOR,URINE DARK YELLOW; GLUCOSE, URINE NEGATIVE (NEGATIVE); KETONES,URINE 80 mg/dL (NEGATIVE); LEUKOCYTE ESTERASE,URINE NEGATIVE (NEGATIVE); NITRITE,URINE NEGATIVE (NEGATIVE); PROTEIN,URINE 100 mg/dL (NEGATIVE); URINE SPECIFIC GRAVITY 1.026
[2020-09-15] MEDS: POTASSI CL 20 MEQ/NS 1L 1,000 ML IV PRN ×3 (00:44→22:13)
--- NOTE | 2020-09-15 00:51 | RADIOLOGY REPORT (SQ) ---
EXAM DESCRIPTION: CT CHEST ANGIOGRAPHY WITHOUT THEN WITH IV CONTRAST COMPLETED DATE/TME: 09/15/2020 00:20 CLINICAL HISTORY: COVID 19. Shortness of breath. COMPARISON: None Available. TECHNIQUE: CTA of the chest obtained following the uncomplicated intravenous administration of 69 mL Omnipaque 350. 3-D/MIP reformatted images of the chest available for evaluation. FINDINGS: Chest: Pulmonary arteries: Contrast bolus is adequate.No filling defects identified in the pulmonary arteries to suggest pulmonary embolus. Thyroid:No abnormalities of the visualized thyroid. Great Vessels:Great vessels have normal anatomic configuration. Thoracic Aorta:No abnormalities of the thoracic aorta identified. Heart: Cardiomegaly. No significant pericardial effusion. No coronary artery atherosclerosis. Lymph Nodes:No enlarged mediastinal lymph nodes identified. Esophagus: Small hiatal hernia. Other:No additional findings. Lungs:Patchy bilateral peripheral bilateral groundglass and airspace opacities. Mild linear bibasilar opacities. Pleura:No pleural effusion or pneumothorax. Trachea/Airways:No abnormalities of the visualized trachea or airways. Bones: Mild degenerative endplate spondylosis. Upper Abdomen:Limited images of the upper abdomen demonstrate no definite abnormalities of visualized portions of the pancreas, spleen, adrenal glands, or kidneys. Hepatic steatosis. IMPRESSION: 1. No pulmonary embolus. 2. Bilateral patchy peripheral groundglass and airspace opacities. Commonly reported imaging features of pneumonia are present. Other processes such as influenza pneumonia and organizing pneumonia, as can be seen with drug toxicity and connective tissue disease, can cause similar imaging pattern. [PneTyp] This exam was performed according to our departmental dose-optimization program, which includes automated exposure control, adjustment of the mA and/or kV according to patient size and/or use of iterative reconstruction technique.
--- NOTE | 2020-09-15 01:10 | Progress Note ---
Provider Note Provider Note: CT pulmonary angiogram did not show pulmonary emboli. CT pulmonary angiogram shows bilateral infiltrates consistent with viral pneumonia. No suspicion for bacterial pneumonia. The patient was hypoxic with oxygen saturation 90% on room air. She is going to be started on 6 mg dexamethasone intravenously daily.
[2020-09-15] MEDS ORDERED: DEXAMETHASONE SOD PHOS INJ 10 MG/1 ML VIAL IV SCH (01:15)
[2020-09-15 05:48] LABS: ABSOLUTE LYMPHOCYTES (AUTO) 0.8 10^3/uL (0.5-4.7); ABSOLUTE MONOCYTES (AUTO) 0.3 10^3/uL (0.1-1.4); ABSOLUTE NEUT (AUTO) 5.4 10^3/uL (1.7-8.2); BASOPHILS % (AUTO) 0.3 % (0-2); HEMATOCRIT 38.7 % (36.0-47.0); HEMOGLOBIN 13.1 g/dL (12.0-15.5); LYMPHOCYTES % (AUTO) 12.6 % (13-45); MEAN CORPUSCULAR HGB CONC 33.9 g/dL (32.0-36.0); MEAN CORPUSCULAR VOLUME 89 fl (80-97); MONOCYTES % (AUTO) 4.7 % (3-13); PLATELET COUNT 241 10^3/uL (150-450); RED BLOOD COUNT 4.37 10^6/uL (3.72-5.28); RED CELL DISTRIBUTION WIDTH 13.7 % (11.5-14.0); SEGMENTED NEUTROPHILS % (AUTO) 82.4 % (42-78); TOTAL CELLS COUNTED % (AUTO) 100 %; WHITE BLOOD COUNT 6.5 10^3/uL (4.0-10.5)
[2020-09-15 06:21] LABS: ALBUMIN 3.7 g/dL (3.5-5.0); ALKALINE PHOSPHATASE 127 U/L (38-126); ANION GAP 9 (5-19); ASPARTATE AMINO TRANSFERASE 62 U/L (14-36); BILIRUBIN,DIRECT 0.3 mg/dL (0.0-0.4); BILIRUBIN,TOTAL 1.4 mg/dL (0.2-1.3); BLOOD UREA NITROGEN 17 mg/dL (7-20); CALCIUM 9.1 mg/dL (8.4-10.2); CARBON DIOXIDE 25 mmol/L (22-30); CHLORIDE 111 mmol/L (98-107); GLUCOSE 132 mg/dL (75-110); POTASSIUM 4.1 mmol/L (3.6-5.0); TOTAL PROTEIN 6.6 g/dL (6.3-8.2)
[2020-09-15] MEDS: METHYLPREDNISOLONE INJ 40 MG/1 ML SDV IV SCH ×2 (09:49→22:12)
[2020-09-15] MEDS: ZINC SULFATE 220 MG CAPSULE PO SCH (09:50)
[2020-09-15] MEDS: VITAMIN B COMPLEX TABLET PO SCH (09:50)
[2020-09-15] MEDS: CHOLECALCIFEROL (D3) 1,000 UNIT (25 MCG) TABLET PO SCH (09:50)
[2020-09-15] MEDS: ENOXAPARIN SODIUM INJ 40 MG/0.4 ML DISP.SYRIN SUBCUT SCH (09:52)
[2020-09-15] MEDS: ASCORBIC ACID 500 MG TABLET PO SCH ×4 (10:02→23:00)
[2020-09-15] MEDS ORDERED: IVERMECTIN 3 MG TABLET PO ONE (11:00)
--- NOTE | 2020-09-15 15:02 | EKG REPORT ---
SEVERITY:- ABNORMAL ECG - SINUS RHYTHM INCOMPLETE RIGHT BUNDLE BRANCH BLOCK PROBABLE LEFT VENTRICULAR HYPERTROPHY : Confirmed by: Rowena Meneses 15-Sep-2020 15:01:38
--- NOTE | 2020-09-15 18:50 | PDOC PROGRESS REPORT ---
Subjective Date:: 09/15/20 Subjective:: No adverse events overnight. Still short of breath on 2 L per nasal cannula, up to 4 L at times, short of breath at rest. Reason For Visit: VOMITING, DEHYDRATION, HYPOXEMIA, COVID19 Physical Exam Vital Signs: Temp Pulse Resp BP Pulse Ox 98.1 F 82 20 156/87 H 93 09/15/20 17:25 09/15/20 17:25 09/15/20 17:25 09/15/20 17:25 09/15/20 17:25 Intake & Output 09/14/20 09/15/20 09/16/20 06:59 06:59 06:59 Intake Total 1000 1320 Output Total 300 Balance 700 1320 Weight 85.2 kg 85.2 kg General appearance: PRESENT: cooperative, disheveled, mild distress, obese Respiratory exam: PRESENT: crackles, symmetrical, tachypnea, unlabored. ABSENT: accessory muscle use, chest wall tenderness, prolonged expiratory phas, rhonchi, wheezes Cardiovascular exam: PRESENT: RRR, +S1, +S2 Pulses: PRESENT: normal carotid pulses Vascular exam: PRESENT: normal capillary refill GI/Abdominal exam: PRESENT: normal bowel sounds, soft. ABSENT: distended, guarding, rebound, tenderness Extremities exam: ABSENT: clubbing, pedal edema Musculoskeletal exam: PRESENT: normal inspection. ABSENT: deformity Neurological exam: PRESENT: alert, awake, oriented to person, oriented to place, oriented to situation Psychiatric exam: PRESENT: anxious Skin exam: PRESENT: dry, warm Results Laboratory Results: 09/15/20 05:25 09/15/20 05:25 09/15/20 09/15/20 09/15/20 00:00 05:25 05:25 WBC 6.5 RBC 4.37 Hgb 13.1 Hct 38.7 MCV 89 MCH 30.0 MCHC 33.9 RDW 13.7 Plt Count 241 Seg Neutrophils % 82.4 H Sodium 145.3 H Potassium 4.1 Chloride 111 H Carbon Dioxide 25 Anion Gap 9 BUN 17 Creatinine 0.53 Est GFR ( Amer) > 60 Glucose 132 H Calcium 9.1 Magnesium 2.4 H Total Bilirubin 1.4 H AST 62 H Alkaline Phosphatase 127 H Total Protein 6.6 Albumin 3.7 TSH Urine Color DARK YELLOW Urine Appearance SLIGHTLY-CLOUDY Urine pH 6.0 Ur Specific [place] 1.026 Urine Protein 100 H Urine Glucose (UA) NEGATIVE Urine Ketones 80 H Urine Blood NEGATIVE Urine Nitrite NEGATIVE Ur Leukocyte Esterase NEGATIVE Urine WBC (Auto) 9 Urine RBC (Auto) 3 09/15/20 05:25 WBC RBC Hgb Hct MCV MCH MCHC RDW Plt Count Seg Neutrophils % Sodium Potassium Chloride Carbon Dioxide Anion Gap BUN Creatinine Est GFR ( Amer) Glucose Calcium Magnesium Total Bilirubin AST Alkaline Phosphatase Total Protein Albumin TSH 0.23 L Urine Color Urine Appearance Urine pH Ur Specific [place] Urine Protein Urine Glucose (UA) Urine Ketones Urine Blood Urine Nitrite Ur Leukocyte Esterase Urine WBC (Auto) Urine RBC (Auto) 09/14/20 15:30 Troponin I < 0.012 Impressions: Chest X-Ray 09/14/20 13:26 IMPRESSION: No acute cardiopulmonary process. Chest/Abdomen CTA 09/15/20 00:00 IMPRESSION: 1. No pulmonary embolus. 2. Bilateral patchy peripheral groundglass and airspace opacities. Commonly reported imaging features of pneumonia are present. Other processes such as influenza pneumonia and organizing pneumonia, as can be seen with drug toxicity and connective tissue disease, can cause similar imaging pattern. [PneTyp] This exam was performed according to our departmental dose-optimization program, which includes automated exposure control, adjustment of the mA and/or kV according to patient size and/or use of iterative reconstruction technique. Assessment and Plan - Diagnosis (2) Acute respiratory failure with hypoxia Is this a current diagnosis for this admission?: Yes (3) COVID-19 Is this a current diagnosis for this admission?: Yes (4) Dehydration Is this a current diagnosis for this admission?: Yes (5) Hypertension Qualifiers: Hypertension type: essential hypertension Qualified Code(s): I10 - Essential (primary) hypertension Is this a current diagnosis for this admission?: Yes - Plan Summary Summary: Breathing seems to have gotten worse, so I decided to try her on a newer COVID- 19 protocol. We will be giving her Solu-Medrol, ivermectin, melatonin, vitamin B complex, vitamin C, vitamin D3, and zinc. Continue supplemental O2 to ma intain SPO2 at least 90 to 94%. We will monitor her for improvement. - Time Time Spent with patient: 15-24 minutes Anticipated Discharge Disposition: Unknown Anticipated Discharge Timeframe: Unknown
[2020-09-15] MEDS: MELATONIN 5 MG TABLET PO SCH (22:12)
[2020-09-15] MEDS: ACETAMINOPHEN 325 MG TABLET PO PRN (22:21)
[2020-09-16] MEDS: ASCORBIC ACID 500 MG TABLET PO SCH ×3 (06:29→17:42)
[2020-09-16] MEDS: ZINC SULFATE 220 MG CAPSULE PO SCH (09:10)
[2020-09-16] MEDS: METHYLPREDNISOLONE INJ 40 MG/1 ML SDV IV SCH ×2 (09:10→21:40)
[2020-09-16] MEDS: CHOLECALCIFEROL (D3) 1,000 UNIT (25 MCG) TABLET PO SCH (09:10)
[2020-09-16] MEDS: ACETAMINOPHEN 325 MG TABLET PO PRN (09:10)
[2020-09-16] MEDS: VITAMIN B COMPLEX TABLET PO SCH (09:10)
[2020-09-16] MEDS: ENOXAPARIN SODIUM INJ 40 MG/0.4 ML DISP.SYRIN SUBCUT SCH (09:11)
[2020-09-16] MEDS: POTASSI CL 20 MEQ/NS 1L 1,000 ML IV PRN ×2 (11:02→18:49)
--- NOTE | 2020-09-16 14:26 | PDOC PROGRESS REPORT ---
Subjective Date:: 09/16/20 Subjective:: No adverse events overnight. No new complaints. She said she does not think he r breathing really felt bad, she just felt bad all over. However, she was hypoxic and tachypneic on presentation. She is no longer tachypneic. She sitting back in the bed and looks very comfortable. She still on 2 L but her oxygen saturations are in the upper 90s. Reason For Visit: VOMITING, DEHYDRATION, HYPOXEMIA, COVID19 Physical Exam Vital Signs: Temp Pulse Resp BP Pulse Ox 97.9 F 81 17 150/81 H 92 09/16/20 10:00 09/16/20 13:38 09/16/20 04:39 09/16/20 04:39 09/16/20 04:39 Intake & Output 09/15/20 09/16/20 09/17/20 06:59 06:59 06:59 Intake Total 1000 3128 1000 Output Total 300 100 Balance 700 3028 1000 Weight 85.2 kg 85.2 kg General appearance: PRESENT: cooperative, disheveled, no apparent distress, obese Respiratory exam: PRESENT: Clear to auscultation bilaterally, symmetrical, unlabored. ABSENT: accessory muscle use, chest wall tenderness, prolonged expiratory phase, rhonchi, wheezes, crackles, tachypnea Cardiovascular exam: PRESENT: RRR, +S1, +S2 Pulses: PRESENT: normal carotid pulses Vascular exam: PRESENT: normal capillary refill GI/Abdominal exam: PRESENT: normal bowel sounds, soft. ABSENT: distended, guarding, rebound, tenderness Extremities exam: ABSENT: clubbing, pedal edema Musculoskeletal exam: PRESENT: normal inspection. ABSENT: deformity Neurological exam: PRESENT: alert, awake, oriented to person, oriented to place, oriented to situation Psychiatric exam: PRESENT: Appropriate affect, normal mood Skin exam: PRESENT: dry, warm Results Laboratory Results: 09/15/20 05:25 09/15/20 05:25 09/14/20 15:30 Troponin I < 0.012 Impressions: Chest X-Ray 09/14/20 13:26 IMPRESSION: No acute cardiopulmonary process. Chest/Abdomen CTA 09/15/20 00:00 IMPRESSION: 1. No pulmonary embolus. 2. Bilateral patchy peripheral groundglass and airspace opacities. Commonly reported imaging features of pneumonia are present. Other processes such as influenza pneumonia and organizing pneumonia, as can be seen with drug toxicity and connective tissue disease, can cause similar imaging pattern. [PneTyp] This exam was performed according to our departmental dose-optimization program, which includes automated exposure control, adjustment of the mA and/or kV according to patient size and/or use of iterative reconstruction technique. Assessment and Plan - Diagnosis (2) Acute respiratory failure with hypoxia Is this a current diagnosis for this admission?: Yes (3) COVID-19 Is this a current diagnosis for this admission?: Yes (4) Dehydration Is this a current diagnosis for this admission?: Yes (5) Hypertension Qualifiers: Hypertension type: essential hypertension Qualified Code(s): I10 - Essential (primary) hypertension Is this a current diagnosis for this admission?: Yes - Plan Summary Summary: Continue Solu-Medrol, ivermectin, melatonin, vitamin B complex, vitamin C, vitamin D3, and zinc. Continue supplemental O2 to maintain SPO2 at least 90 to 94%. Her respiratory rate is come down, her heart rate is normal, and she looks a lot more comfortable than she did yesterday. Her breath sounds have improved. We will start to wean her oxygen as tolerated. - Time Time Spent with patient: 15-24 minutes Anticipated Discharge Disposition: Unknown Anticipated Discharge Timeframe: Unknown
[2020-09-16] MEDS: MELATONIN 5 MG TABLET PO SCH (21:40)
[2020-09-17] MEDS: ASCORBIC ACID 500 MG TABLET PO SCH ×4 (07:43→17:33)
[2020-09-17] MEDS: POTASSI CL 20 MEQ/NS 1L 1,000 ML IV PRN (07:44)
[2020-09-17] MEDS ORDERED: IVERMECTIN 3 MG TABLET PO ONE (10:00)
[2020-09-17] MEDS: METHYLPREDNISOLONE INJ 40 MG/1 ML SDV IV SCH ×2 (11:48→21:32)
[2020-09-17] MEDS: ZINC SULFATE 220 MG CAPSULE PO SCH (11:48)
[2020-09-17] MEDS: CHOLECALCIFEROL (D3) 1,000 UNIT (25 MCG) TABLET PO SCH (11:48)
[2020-09-17] MEDS: VITAMIN B COMPLEX TABLET PO SCH (11:48)
[2020-09-17] MEDS: ENOXAPARIN SODIUM INJ 40 MG/0.4 ML DISP.SYRIN SUBCUT SCH (11:49)
--- NOTE | 2020-09-17 16:41 | PDOC PROGRESS REPORT ---
Subjective Date:: 09/17/20 Subjective:: No adverse events overnight. No new complaints. She is feeling much better tod ay. When I saw her this morning she was on room air and we were going to consider discharging her home. We ordered a CRP to see if she would still need steroids at discharge. While we were waiting for that result, her oxygen saturations on room air trended down a little bit to around 88%. She was in no distress at all and was comfortable. Reason For Visit: VOMITING, DEHYDRATION, HYPOXEMIA, COVID19 Physical Exam Vital Signs: Temp Pulse Resp BP Pulse Ox 98.5 F 87 16 178/90 H 90 L 09/17/20 15:53 09/17/20 15:53 09/17/20 15:53 09/17/20 15:53 09/17/20 15:53 Intake & Output 09/16/20 09/17/20 09/18/20 06:59 06:59 06:59 Intake Total 3128 4055 901 Output Total 100 1100 Balance 3028 2955 901 Weight 85.2 kg 91 kg General appearance: PRESENT: cooperative, disheveled, no apparent distress, obese Respiratory exam: PRESENT: Clear to auscultation bilaterally, symmetrical, unlabored. ABSENT: accessory muscle use, chest wall tenderness, prolonged expiratory phase, rhonchi, wheezes, crackles, tachypnea Cardiovascular exam: PRESENT: RRR, +S1, +S2 Pulses: PRESENT: normal carotid pulses Vascular exam: PRESENT: normal capillary refill GI/Abdominal exam: PRESENT: normal bowel sounds, soft. ABSENT: distended, guard ing, rebound, tenderness Extremities exam: ABSENT: clubbing, pedal edema Musculoskeletal exam: PRESENT: normal inspection. ABSENT: deformity Neurological exam: PRESENT: alert, awake, oriented to person, oriented to place, oriented to situation Psychiatric exam: PRESENT: Appropriate affect, normal mood Skin exam: PRESENT: dry, warm Results Laboratory Results: 09/15/20 05:25 09/15/20 05:25 09/17/20 14:58 C-Reactive Protein 49.2 H 09/14/20 15:30 Troponin I < 0.012 Impressions: Chest X-Ray 09/14/20 13:26 IMPRESSION: No acute cardiopulmonary process. Chest/Abdomen CTA 09/15/20 00:00 IMPRESSION: 1. No pulmonary embolus. 2. Bilateral patchy peripheral groundglass and airspace opacities. Commonly reported imaging features of pneumonia are present. Other processes such as influenza pneumonia and organizing pneumonia, as can be seen with drug toxicity and connective tissue disease, can cause similar imaging pattern. [PneTyp] This exam was performed according to our departmental dose-optimization program, which includes automated exposure control, adjustment of the mA and/or kV according to patient size and/or use of iterative reconstruction technique. Assessment and Plan - Diagnosis (2) Acute respiratory failure with hypoxia Is this a current diagnosis for this admission?: Yes (3) COVID-19 Is this a current diagnosis for this admission?: Yes (4) Dehydration Is this a current diagnosis for this admission?: Yes (5) Hypertension Qualifiers: Hypertension type: essential hypertension Qualified Code(s): I10 - Essential (primary) hypertension Is this a current diagnosis for this admission?: Yes - Plan Summary Summary: Continue Solu-Medrol, ivermectin, melatonin, vitamin B complex, vitamin C, vitamin D3, and zinc. Continue supplemental O2 to maintain SPO2 at least 90 to 94%. Her respiratory rate is come down, her heart rate is normal, and she looks a lot more comfortable than she did yesterday. Her breath sounds have improved. If she is on room air tomorrow, she can be discharged home on a steroid taper. - Time Time Spent with patient: 15-24 minutes Anticipated Discharge Disposition: Home, Self Care Anticipated Discharge Timeframe: within 48 hours
[2020-09-17] MEDS: AMLODIPINE BESYLATE 10 MG TABLET PO SCH (17:32)
[2020-09-17] MEDS: MELATONIN 5 MG TABLET PO SCH (21:31)
[2020-09-18] MEDS: ASCORBIC ACID 500 MG TABLET PO SCH ×2 (02:29→06:23)
[2020-09-18] MEDS: ZINC SULFATE 220 MG CAPSULE PO SCH (10:29)
[2020-09-18] MEDS: AMLODIPINE BESYLATE 10 MG TABLET PO SCH (10:29)
[2020-09-18] MEDS: CHOLECALCIFEROL (D3) 1,000 UNIT (25 MCG) TABLET PO SCH (10:29)
[2020-09-18] MEDS: METHYLPREDNISOLONE INJ 40 MG/1 ML SDV IV SCH (10:30)
[2020-09-18] MEDS: ENOXAPARIN SODIUM INJ 40 MG/0.4 ML DISP.SYRIN SUBCUT SCH (10:30)
[2020-09-18] MEDS: VITAMIN B COMPLEX TABLET PO SCH (10:30)
--- NOTE | 2020-09-18 17:03 | PDOC DISCHARGE SUMMARY ---
Impression - Admit/DC Date/PCP Admission Date/Primary Care Provider: 09/14/20 22:58 JERRY THOMAS MD Discharge Date: 09/18/20 - Discharge Diagnosis (1) Acute respiratory failure with hypoxia Is this a current diagnosis for this admission?: Yes (2) COVID-19 Is this a current diagnosis for this admission?: Yes (3) Dehydration Is this a current diagnosis for this admission?: Yes (4) Hypertension Is this a current diagnosis for this admission?: Yes (5) Obesity (BMI 30.0-34.9) Is this a current diagnosis for this admission?: Yes - Assessment Summary: Continue Solu-Medrol, ivermectin, melatonin, vitamin B complex, vitamin C, vitamin D3, and zinc. Continue supplemental O2 to maintain SPO2 at least 90 to 94%. Her respiratory rate is come down, her heart rate is normal, and she looks a lot more comfortable than she did yesterday. Her breath sounds have improved. If she is on room air tomorrow, she can be discharged home on a steroid taper. - Additional Information Resuscitation Status: Full Code Discharge Diet: Cardiac Discharge Activity: Activity As Tolerated, Balance Activity w/Rest Referrals: ERYN CAI RN INTERN [NURSE PRACTITIONER] - 10/09/20 10:30 am Prescriptions: Amlodipine Besylate [Norvasc 10 mg Tablet] 10 mg PO DAILY #30 tablet Prednisone See Protocol PO DAILY #42 tab.ds.pk Home Medications: Amlodipine Besylate [Norvasc 10 mg Tablet] 10 mg PO DAILY #30 tablet 09/18/20 Ascorbic Acid [Vitamin C 500 mg Tablet] 1,000 mg PO Q6 tablet 09/18/20 Cholecalciferol (Vitamin D3) [Vitamin D3 1000 Unit Tablet] 2,000 unit PO DAILY tablet 09/18/20 Melatonin [Melatonin 5 mg Tablet] 10 mg PO QHS tablet 09/18/20 Prednisone See Protocol PO DAILY #42 tab.ds.pk 09/18/20 Vitamin B Complex [Vitamin B Complex Tablet] 1 tab PO DAILY tablet 09/18/20 Zinc Sulfate [Zinc-220 Capsule] 220 mg PO DAILY capsule 09/18/20 History of Present Illiness History of Present Illness: GERMANIA DURHAM is a 59 year old female. She is not feeling well for about 7 to 10 days now. She tested positive for coronavirus on September 11. She was coughing, she had shaking chills and fever. She had no shortness of breath. She developed diarrhea with watery bowel movements. She became nauseated, lost her appetite and vomited several times. She had no coffee-ground material or blood in her emesis. She continued to have some fever. She became weak and eventually decided come to the hospital. After receiving intravenous fluids she was started feeling better. She did not have any shortness of breath but her oxygen saturation was about 90% on room air, she was placed on oxygen. She maintains good oxygen saturation with 2 L/min nasal oxygen in the high 90s. When I saw her she appeared to be weak but she was not in any pain or respiratory distress. Hospital Course Hospital Course: We put her on the [facility] treatment protocol for COVID-19. She received IV Solu-Medrol, ivermectin, B vitamin complex, vitamin C, vitamin D, zinc, and melatonin. By hospital day 2 her breathing had improved. By hospital day 3 she was down to 1 L per nasal cannula. At time of discharge she was on room air. She was able to ambulate back and forth to the bathroom independently without getting short of breath. We increased her amlodipine for better blood pressure control. She will continue on the above-mentioned vitamins, she has completed her ivermectin, and because her CRP is still elevated above normal she will continue on a 12-day steroid taper as an outpatient. She was advised to take appropriate precautions and to self isolate for at least another week. She has been sick now for about 17 to 18 days, so it is unlikely that she still has live active virus to transmit, but we want her to be cautious for least a week in any regard, and also because we do not want her to get any sort of superimposed infection. She verbalized her understanding. She has follow-up with her primary care provider in 1 week. Her labs and examination were reassuring and she was discharged in stable condition. Physical Exam Vital Signs: Temp Pulse Resp BP Pulse Ox 97.5 F 93 18 177/84 H 89 L 09/18/20 12:10 09/18/20 14:00 09/18/20 12:10 09/18/20 12:10 09/18/20 12:10 Intake & Output 12/14/20 12/15/20 12/16/20 06:59 06:59 06:59 Intake Total 4055 1381 750 Output Total 1100 1400 Balance 2955 -19 750 Weight 91 kg 90.3 kg General appearance: PRESENT: cooperative, disheveled, no apparent distress, obese Respiratory exam: PRESENT: Clear to auscultation bilaterally, symmetrical, unlabored. ABSENT: accessory muscle use, chest wall tenderness, prolonged expiratory phase, rhonchi, wheezes, crackles, tachypnea Cardiovascular exam: PRESENT: RRR, +S1, +S2 Pulses: PRESENT: normal carotid pulses Vascular exam: PRESENT: normal capillary refill GI/Abdominal exam: PRESENT: normal bowel sounds, soft. ABSENT: distended, guarding, rebound, tenderness Extremities exam: ABSENT: clubbing, pedal edema Musculoskeletal exam: PRESENT: normal inspection. ABSENT: deformity Neurological exam: PRESENT: alert, awake, oriented to person, oriented to place, oriented to situation Psychiatric exam: PRESENT: Appropriate affect, normal mood Skin exam: PRESENT: dry, warm Results Laboratory Results: WBC 6.5 10^3/uL (4.0-10.5) 09/15/20 05:25 RBC 4.37 10^6/uL (3.72-5.28) 09/15/20 05:25 Hgb 13.1 g/dL (12.0-15.5) 09/15/20 05:25 Hct 38.7 % (36.0-47.0) 09/15/20 05:25 MCV 89 fl (80-97) 09/15/20 05:25 MCH 30.0 pg (27.0-33.4) 09/15/20 05:25 MCHC 33.9 g/dL (32.0-36.0) 09/15/20 05:25 RDW 13.7 % (11.5-14.0) 09/15/20 05:25 Plt Count 241 10^3/uL (150-450) 09/15/20 05:25 Lymph % (Auto) 12.6 % (13-45) L 09/15/20 05:25 [place] % (Auto) 4.7 % (3-13) 09/15/20 05:25 Eos % (Auto) 0.0 % (0-6) 09/15/20 05:25 Baso % (Auto) 0.3 % (0-2) 09/15/20 05:25 Absolute Neuts (auto) 5.4 10^3/uL (1.7-8.2) 09/15/20 05:25 Absolute Lymphs (auto) 0.8 10^3/uL (0.5-4.7) 09/15/20 05:25 Absolute Monos (auto) 0.3 10^3/uL (0.1-1.4) 09/15/20 05:25 Absolute Eos (auto) 0.0 10^3/uL (0.0-0.6) 09/15/20 05:25 Absolute Basos (auto) 0.0 10^3/uL (0.0-0.2) 09/15/20 05:25 Seg Neutrophils % 82.4 % (42-78) H 09/15/20 05:25 D-Dimer 0.57 ug/mL (0.00-0.50) H 09/14/20 15:30 Sodium 145.3 mmol/L (137-145) H 09/15/20 05:25 Potassium 4.1 mmol/L (3.6-5.0) 09/15/20 05:25 Chloride 111 mmol/L (98-107) H 09/15/20 05:25 Carbon Dioxide 25 mmol/L (22-30) 09/15/20 05:25 Anion Gap 9 (5-19) 09/15/20 05:25 BUN 17 mg/dL (7-20) 09/15/20 05:25 Creatinine 0.53 mg/dL (0.52-1.25) 09/15/20 05:25 Est GFR ( Amer) > 60 (>60) 09/15/20 05:25 Est GFR (MDRD) Non-Af > 60 (>60) 09/15/20 05:25 Glucose 132 mg/dL (75-110) H 09/15/20 05:25 POC Glucose 128 mg/dL (70-110) H 09/17/20 15:52 Hemoglobin A1c % 5.1 % (4.7-6.0) 09/15/20 05:25 Calcium 9.1 mg/dL (8.4-10.2) 09/15/20 05:25 Magnesium 2.4 mg/dL (1.6-2.3) H 09/15/20 05:25 Total Bilirubin 1.4 mg/dL (0.2-1.3) H 09/15/20 05:25 Direct Bilirubin 0.3 mg/dL (0.0-0.4) 09/15/20 05:25 Neonat Total Bilirubin Not Reportable 09/15/20 05:25 Neonat Direct Bilirubin Not Reportable 09/15/20 05:25 Neonat Indirect Bili Not Reportable 09/15/20 05:25 AST 62 U/L (14-36) H 09/15/20 05:25 ALT 52 U/L (<35) H 09/15/20 05:25 Alkaline Phosphatase 127 U/L (38-126) H 09/15/20 05:25 Troponin I < 0.012 ng/mL 09/14/20 15:30 C-Reactive Protein 61.1 mg/L (<10.0) H 09/18/20 10:24 Total Protein 6.6 g/dL (6.3-8.2) 09/15/20 05:25 Albumin 3.7 g/dL (3.5-5.0) 09/15/20 05:25 Lipase 33.7 U/L (23-300) 09/14/20 15:30 TSH 0.23 uIU/mL (0.47-4.68) L 09/15/20 05:25 Urine Color DARK YELLOW 09/15/20 00:00 Urine Appearance SLIGHTLY-CLOUDY 09/15/20 00:00 Urine pH 6.0 (5.0-9.0) 09/15/20 00:00 Ur Specific [place] 1.026 09/15/20 00:00 Urine Protein 100 mg/dL (NEGATIVE) H 09/15/20 00:00 Urine Glucose (UA) NEGATIVE mg/dL (NEGATIVE) 09/15/20 00:00 Urine Ketones 80 mg/dL (NEGATIVE) H 09/15/20 00:00 Urine Blood NEGATIVE (NEGATIVE) 09/15/20 00:00 Urine Nitrite NEGATIVE (NEGATIVE) 09/15/20 00:00 Urine Bilirubin NEGATIVE (NEGATIVE) 09/15/20 00:00 Urine Urobilinogen 2.0 mg/dL (<2.0) H 09/15/20 00:00 Ur Leukocyte Esterase NEGATIVE (NEGATIVE) 09/15/20 00:00 Urine WBC (Auto) 9 /HPF 09/15/20 00:00 Urine RBC (Auto) 3 /HPF 09/15/20 00:00 U Hyaline Cast (Auto) 9 /LPF 09/15/20 00:00 Urine Bacteria (Auto) 1+ /HPF 09/15/20 00:00 Squamous Epi Cells Auto 1 /HPF 09/15/20 00:00 Urine Mucus (Auto) MANY /LPF 09/15/20 00:00 Urine Ascorbic Acid NEGATIVE (NEGATIVE) 09/15/20 00:00 09/14/20 15:30 Troponin I < 0.012 Impressions: Chest X-Ray 09/14/20 13:26 IMPRESSION: No acute cardiopulmonary process. Chest/Abdomen CTA 09/15/20 00:00 IMPRESSION: 1. No pulmonary embolus. 2. Bilateral patchy peripheral groundglass and airspace opacities. Commonly reported imaging features of pneumonia are present. Other processes such as influenza pneumonia and organizing pneumonia, as can be seen with drug toxicity and connective tissue disease, can cause similar imaging pattern. [PneTyp] This exam was performed according to our departmental dose-optimization program, which includes automated exposure control, adjustment of the mA and/or kV according to patient size and/or use of iterative reconstruction technique. Plan Time Spent: Greater than 30 Minutes Stroke Is this a Stroke Patient?: No Acute Heart Failure Is this a Heart Failure Patient?: No
[2020-09-18 17:18] VITALS: BP 139/75
== END 2020-09-18 17:45 | disposition home or self-care (01) | DRG 177 ==
LOC: ER 13:11 → EH 22:58 → 3N 09-15 00:27
PROVIDERS: ADMIT Internal Medicine; ATTEND Family Medicine
DX: U07.1 COVID-19 (principal); J96.01 Acute respiratory failure with hypoxia; A09 Infectious gastroenteritis and colitis, unspecified; E86.0 Dehydration; I10 Essential (primary) hypertension; E66.9 Obesity, unspecified; R11.2 Nausea with vomiting, unspecified; Z68.34 Body mass index [BMI] 34.0-34.9, adult; Z79.899 Other long term (current) drug therapy; Z87.891 Personal history of nicotine dependence; Z88.4 Allergy status to anesthetic agent; Z88.0 Allergy status to penicillin
CPT/HCPCS: 36415; 71045; 71275; 80053; 81001; 82962; 83036; 83690; 83735; 84443; 84484; 85025; 85379; 86140; 93005; 93010; 96361; 96372; 96374; 99285; J1100; J1650; J2405; J2550; J2920; J3480; J3490; J7030